=== PATIENT | female | born 1975 | race Caucasian/White ===

== ENCOUNTER 2017-09-24 11:03 | Emergency (ER) | payer BC ==
[2017-09-24 11:24] VITALS: BP 127/67
--- NOTE | 2017-09-24 12:00 | UC ---
Abdominal Pain Female HPI - HPI Summary HPI Summary: returned from the last night began with nausea and diarrhea 2 days ago--- notes the diarrhea to be mostly salas---has been taking pepto with out much relief---no one else in the travel group is ill - History of Current Complaint Chief Complaint: UCGI Stated Complaint: VOMITING/DIARRHEA FEVER Time Seen by Provider: 09/24/17 11:51 Hx Obtained From: Patient Hx Last Menstrual Period: one week ago ?: No Onset/Duration: Sudden Onset, Lasting Days - 2, Still Present Timing: Constant Severity Initially: Mild Severity Currently: Mild Pain Intensity: 3 Pain Scale Used: 0-10 Numeric Location: Diffuse Radiates: No Character: Cramping Aggravating Factor(s): Food Alleviating Factor(s): Nothing Associated Signs and Symptoms: Positive: Nausea, Vomiting, Diarrhea Allergies/Adverse Reactions: Allergies Allergy/AdvReac Type Severity Reaction Status Date / Time Penicillins Allergy Rash Verified 09/24/17 11:24 Home Medications: Home Medications Acetaminophen TAB* [Tylenol TAB*] 1,000 mg PO ONCE 09/24/17 [History Confirmed 09/24/17] PMH/Surg Hx/FS Hx/Imm Hx Previously Healthy: Yes - Surgical History Surgical History: None - Family History Known Family History: Positive: None - Social History Occupation: Works From/At Home Lives: With Family Alcohol Use: Occasionally Alcohol Amount: 3-4 GLASSES /WEEK Substance Use Type: None Smoking Status (MU): Never Smoked Tobacco Have You Smoked in the Last Year: No Review of Systems Constitutional: Chills Skin: Negative Eyes: Negative ENT: Negative Respiratory: Negative Cardiovascular: Negative Gastrointestinal: Abdominal Pain, Vomiting, Diarrhea, Nausea Genitourinary: Negative Motor: Negative Neurovascular: Negative Musculoskeletal: Negative Neurological: Negative Psychological: Negative Is Patient Immunocompromised?: No All Other Systems Reviewed And Are Negative: Yes Physical Exam Triage Information Reviewed: Yes Appearance: Well-Appearing, No Pain Distress, Well-Nourished Vital Signs: Initial Vital Signs Temp 98.9 F 09/24/17 11:17 Pulse 81 09/24/17 11:17 Resp 12 09/24/17 11:17 BP 127/67 09/24/17 11:17 Pulse Ox 100 09/24/17 11:17 Vital Signs Reviewed: Yes Eye Exam: Normal Eyes: Positive: Conjunctiva Clear ENT Exam: Normal ENT: Positive: Normal ENT inspection, Hearing grossly normal. Negative: Nasal congestion, Trismus, Muffled voice, Hoarse voice Neck exam: Normal Neck: Positive: Supple, Nontender Respiratory Exam: Normal Respiratory: Positive: Chest non-tender, Lungs clear, Normal breath sounds, No respiratory distress, No accessory muscle use Cardiovascular Exam: Normal Cardiovascular: Positive: RRR, No Murmur, Pulses Normal, Brisk Capillary Refill Abdominal Exam: Other Abdomen Description: Positive: No Organomegaly, Soft, Other: - diffuse lower abdomen discomfort. Negative: Nontender, CVA Tenderness (R), CVA Tenderness (L) , Distended, Guarding, Hepatomegaly, McBurney's Point Tenderness, Peritoneal Signs, Pulsatile Mass Bowel Sounds: Positive: Present Musculoskeletal Exam: Normal Musculoskeletal: Positive: Strength Intact, ROM Intact, No Edema Neurological Exam: Normal Neurological: Positive: Alert, Muscle Tone Normal Psychological Exam: Normal Skin Exam: Normal Diagnostics - Laboratory Diagnostic Studies Completed/Ordered: ua sg <1.005 Abd Pain Female Course/Dx - Course Course Of Treatment: will collect stool and send to lab, encourage po fluids and diet to help with diarrhea, will treat as indicated by stool results--- follow with pcp - Differential Dx/Diagnosis Provider Diagnoses: Travelers diarrhea Discharge - Sign-Out/Discharge Documenting (check all that apply): Discharge - Discharge Plan Condition: Stable Disposition: HOME Patient Education Materials: Traveler's Diarrhea (ED), Nutrition Tips for Relief of Diarrhea (ED) Referrals: Davina Barragan MD [Primary Care Provider] - If Needed - Billing Disposition and Condition Condition: STABLE Disposition: HOME
--- NOTE | 2017-09-27 11:42 | UC ---
- Progress Note Progress Note: Notify patient of stool results This usually clears without antibiotics If she is not improved or worse we can ERX zithromax 500mg TID x 3 days Discharge - Sign-Out/Discharge Documenting (check all that apply): Post-Discharge Follow Up - Discharge Plan Condition: Stable Disposition: HOME Patient Education Materials: Traveler's Diarrhea (ED), Nutrition Tips for Relief of Diarrhea (ED) Referrals: Davina Barragan MD [Primary Care Provider] - If Needed - Billing Disposition and Condition Condition: STABLE Disposition: HOME
== END 2017-09-24 12:30 | disposition home or self-care (01) ==
LOC: UCEAST 11:03
DX: R19.7 Diarrhea, unspecified (principal); R11.2 Nausea with vomiting, unspecified; R68.83 Chills (without fever); R10.30 Lower abdominal pain, unspecified; Z88.0 Allergy status to penicillin
CPT/HCPCS: 81003; 87045; 87046; 87077; 87328; 87329; 87493; 87899; 99201; G0463